=== PATIENT | female | born 1950 | race Caucasian/White ===

== ENCOUNTER → 2017-03-30 | Outpatient (CLI) | payer MEDICARE, BC ==
[~2017-03-30] MED LIST: ACTONEL PO; ALENDRONATE SOD70 MG PO; ATENOLOL PO; ATENOLOL50 MG PO; BACLOFEN10 MG PO; CEPHALEXIN500 M1 PO; COUMADIN1 MG PO; CYMBALTA30 MG PO; EFFEXOR75 MG PO; FERROUS GLUCON324 MG PO; IBUPROFEN PO; LOSARTAN-HCTZ1 EACH PO; MICROZIDE12.5 M1 PO; MOBIC15 MG PO; MORPHINE IR PO; MS CONTIN15 M1 PO; NEURONTIN PO; NORCO 7.5-3251 EACH PO; OMEPRAZOLE40 M1 PO; ORAMORPH SR15 MG PO; PAMELOR PO; PANTOPRAZOLE SO40 MG PO; PHENERGAN25 M1 PO; VALACYCLOVIR500 MG PO; ZOFRAN PO
--- NOTE | ~2017-03-30 | CR139 ---
[facility] A Service of [facility] & [facility] RADIOLOGY TEXT RESULTS PATIENT: NIXON SANDERS LOCATION: [facility] : 49 UNIT #: [id number] AGE: [address]: Lexy Sigala MD SEX: F ORDER DR: [id number] [facility] [address] [place], [place] [address] [id number] O MR#: [id number] Acc #: [id number] NAME: NIXON SANDERS : 1950 SEX: F STUDY DATE/TIME: 03/30/2017 13:42 UNIT: [facility] ROOM: STUDY DESCRIPTION: CR Hand 2 Views Rt Attending Physician: Lexy Sigala M.D. Referring Physician: Lexy Sigala M.D. Ordering Physician: Lexy Sigala M.D. Primary Care Physician: Lexy Sigala M.D. MEDICAL IMAGING REPORT This report is preliminary unless electronic signature is present EXAM Right hand, 3 views. DATE OF EXAM 03/30/2017 HISTORY Pain medial side of right hand and swelling of fifth digit for 1 week. History of rheumatoid arthritis. FINDINGS 3 views of the right hand demonstrate avulsion-type fracture involving the volar base of the third middle phalanx seen only on the lateral view which is indeterminate in age, possibly subacute to chronic. Clinical correlation is recommended. No other fracture or dislocation is seen. The bones are mildly osteopenic. There is a mild degenerative narrowing and osteophytic spurring about the first carpometacarpal joint. There is also narrowing of the third through fifth distal interphalangeal joints and the fifth proximal interphalangeal joint. Subchondral cyst formation is seen involving the head of the fourth proximal phalanx, the base of the fifth proximal phalanx, and at the level of the fifth distal interphalangeal joint. No erosive process is seen. There is soft tissue swelling about the third and fifth phalanges. Calcification in the region of the triangular fibrocartilage is noted. IMPRESSION 1. Avulsion-type fracture involving the volar base of the third middle phalanx which is of indeterminate age possibly subacute to chronic but correlation with patient history and clinical findings is strongly recommended. 2. Degenerative changes as noted above. 3. Soft tissue swelling about the third and fifth phalanges. [facility] A Service of [facility] RADIOLOGY TEXT RESULTS PATIENT: NIXON SANDERS LOCATION: [facility] : [birth year] UNIT #: [id number] AGE: [address]: Lexy Sigala MD SEX: F ORDER DR: Dictated by... Andrade Gusman M.D. THIS IS AN ELECTRONICALLY VERIFIED REPORT Andrade Gusman M.D. at 04/03/2017 9:19 AM FELICITAS/eleonora TD: 03/30/2017 21:41 JOB #: [id number] MEDICAL IMAGING REPORT Page 1 of 1 COPY
== END | disposition home or self-care (01) ==
LOC: CRAD 13:00
DX: M06.9 Rheumatoid arthritis, unspecified (principal); S62.632D Displaced fracture of distal phalanx of right middle finger, subsequent encounter for fracture with routine healing; M79.89 Other specified soft tissue disorders
CPT/HCPCS: 73120

== ENCOUNTER → 2017-05-01 | Outpatient (CLI) | payer MEDICARE, BC ==
--- NOTE | ~2017-05-01 | US77 ---
[facility] A Service of [facility] & [facility] RADIOLOGY TEXT RESULTS PATIENT: NIXON SANDERS LOCATION: [facility] : 49 UNIT #: [id number] AGE: [address]: Lexy Sigala MD SEX: F ORDER DR: [id number] [address] [address] [id number] O MR#: [id number] Acc #: [id number] NAME: NIXON SANDERS : 1950 SEX: F STUDY DATE/TIME: 05/01/2017 11:14 UNIT: [facility] ROOM: STUDY DESCRIPTION: US Kidney Bilateral Complete Attending Physician: Lexy Sigala M.D. Referring Physician: Lexy Sigala M.D. Ordering Physician: Lexy Sigala M.D. Primary Care Physician: Lexy Sigala M.D. MEDICAL IMAGING REPORT This report is preliminary unless electronic signature is present. EXAM Renal ultrasound 05/01/2017. HISTORY Chronic kidney disease stage II. Abnormal renal function tests 1 week ago. FINDINGS The right kidney measured 7.3 cm, while the left kidney measured 7.1 cm in longitudinal dimensions. There is no evidence of hydronephrosis or nephrolithiasis. No cystic or solid mass lesions were seen on either kidney. There is normal renal cortical echogenicity, but the kidneys do appear small bilaterally with some cortical thinning. The bladder was empty for the examination and, therefore, poorly visualized. IMPRESSION 1. Small kidneys bilaterally with cortical thinning. No evidence of hydronephrosis. Normal renal cortical echogenicity. 2. The bladder was empty for the exam and, therefore, poorly visualized. Dictated by... Andrade Gusman M.D. THIS IS AN ELECTRONICALLY VERIFIED REPORT Andrade Gusman M.D. at 05/02/2017 8:29 AM Angelo TD: 05/01/2017 16:54 JOB #: [id number] MEDICAL IMAGING REPORT Page 1 of 1
== END | disposition home or self-care (01) ==
LOC: SGUS 11:08
DX: N18.2 Chronic kidney disease, stage 2 (mild) (principal); N28.89 Other specified disorders of kidney and ureter
CPT/HCPCS: 76775

== ENCOUNTER → 2017-05-08 | Outpatient (CLI) | payer MEDICARE, BC ==
--- NOTE | ~2017-05-08 | US24 ---
[facility] A Service [facility] RADIOLOGY TEXT RESULTS PATIENT: NIXON SANDERS LOCATION: [facility] : 49 UNIT #: [id number] AGE: [address]: Lexy Sigala MD SEX: F ORDER DR: [id number] [facility] [address] [place], [place] [address] [id number] O MR#: [id number] Acc #: [id number] NAME: NIXON SANDERS : 1950 SEX: F STUDY DATE/TIME: 05/08/2017 13:29 UNIT: [facility] ROOM: STUDY DESCRIPTION: US Breast Unilateral Attending Physician: Lexy Sigala M.D. Ordering Physician: Lexy Sigala M.D. Primary Care Physician: Lexy Sigala M.D. MEDICAL IMAGING REPORT This report is preliminary unless electronic signature is present EXAM Right breast ultrasound. INDICATIONS 6-month follow up for a indeterminate right breast mass. Suspected complex cyst. FINDINGS Ford-scale color ultrasound of the right breast was performed and compared to 11/03/2016. The hypoechoic nodule at the 2 o'clock position right breast is approximately 5 cm from nipple. This measures 0.6 x 0.6 x 0.7 cm. The lesion has some low internal echoes. There is some sound through transmission. This may still represent a complex cyst, however, ultrasound-guided core biopsy is recommended. There is no internal Doppler flow identified. No new lesions are identified. The lesion previously measured 0.4 x 0.2 x 0.3 cm. IMPRESSION 1. Small mass at the 2 o'clock position right breast has slightly increased in size since the 11/03/2016 exam. This may still represent a hemorrhagic or proteinaceous cyst, however, would recommend ultrasound-guided aspiration and/or biopsy to further evaluate and differentiate from the solid mass. BIRADS: 4 Suspicious abnormality. Biopsy should be considered. RECOMMENDATION Ultrasound-guided core needle biopsy. [facility] A Service of [facility] RADIOLOGY TEXT RESULTS PATIENT: NIXON SANDERS LOCATION: [facility] : 49 UNIT #: [id number] AGE: [address]: Lexy Sigala MD SEX: F ORDER DR: Results of study as well as recommendations were discussed directly with the patient at the time of review in the department of radiology. The breast transitional care liaison office was contacted to help facilitate the ultrasound guided biopsy. Dictated by... Baldomero Simpson M.D. THIS IS AN ELECTRONICALLY VERIFIED REPORT Baldomero Simpson M.D. at 05/09/2017 9:08 AM LISA/dennis TD: 05/08/2017 16:48 JOB #: [id number] MEDICAL IMAGING REPORT Page 1 of 1 COPY
== END | disposition home or self-care (01) ==
LOC: CGUS 13:14 → CWCC 13:14 → CGUS 13:30
DX: N60.01 Solitary cyst of right breast (principal); N63 Unspecified lump in breast
CPT/HCPCS: 76641

== ENCOUNTER → 2017-05-15 | Day surgery (SDC) | payer MEDICARE, BC ==
--- NOTE | ~2017-05-15 | US200 ---
[facility] A Service of [facility] RADIOLOGY TEXT RESULTS PATIENT: NIXON SANDERS LOCATION: [facility] : 49 UNIT #: [id number] AGE: [address]: Lexy Sigala MD SEX: F ORDER DR: [id number] [facility] [address] [place], [place] [address] [id number] O MR#: [id number] Acc #: [id number] NAME: NIXON SANDERS : 1950 SEX: F STUDY DATE/TIME: 05/15/2017 14:26 UNIT: [facility] ROOM: STUDY DESCRIPTION: US Breast Guided Bx 1st Lesion Attending Physician: Lexy Sigala M.D. Ordering Physician: Lexy Sigala M.D. Primary Care Physician: Lexy Sigala M.D. MEDICAL IMAGING REPORT This report is preliminary unless electronic signature is present REVISED REPORT See addendum EXAM Ultrasound-guided right breast biopsy, 05/15/2017. INDICATIONS Enlarging hypoechoic lesion at the 2 o'clock position of the right breast. PROCEDURE Informed consent was obtained and time-out was performed. The hypoechoic lesion at 2 o'clock position was localized with ultrasound. The skin was marked, and then prepped and draped using maximal sterile barrier technique. 1% lidocaine without epinephrine used for local anesthesia. Initially, attempts were made at aspirating the lesion with a 20 gauge needle. No fluid could be removed. Then, two 14-gauge core biopsies were obtained through the nodule with an Achieve needle. A marking clip was left within the lesion. It is in the expected location on the post-procedure mammogram. There were no immediate complications. Permanent ultrasound images were recorded. IMPRESSION Successful ultrasound-guided core biopsy of a hypoechoic nodule at the right breast 2 o'clock position. Marking clip left in place within the lesion. Dictated by... Mekhi Diego Jr., M.D. [facility] A Service of [facility] RADIOLOGY TEXT RESULTS PATIENT: NIXON SANDERS LOCATION: [facility] #: [id number] : 48 UNIT #: [id number] AGE: [address]: Lexy Sigala MD SEX: F ORDER DR: Raymond TD: 05/15/2017 21:35 JOB #: [id number] EXAM Ultrasound-guided breast biopsy on 05/15/2017. ADDENDUM Pathology results have been received. 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 Please see the complete pathology report. Surgical and Oncological consultation recommended. STAT * RESULT Dictated by... Mekhi Diego Jr., M.D. THIS IS AN ELECTRONICALLY VERIFIED REPORT Mekhi Diego Jr., M.D. at 05/21/2017 3:47 PM Raymond TD: 05/18/2017 15:25 JOB #: [id number] CC: Corinne/davion Please Delete MEDICAL IMAGING REPORT Page 1 of 1 COPY
== END | disposition home or self-care (01) ==
LOC: CWCC 13:52
DX: C50.211 Malignant neoplasm of upper-inner quadrant of right female breast (principal); Z17.1 Estrogen receptor negative status [ER-]
CPT/HCPCS: 88305; G0204

== ENCOUNTER → 2017-06-19 | Outpatient (CLI) | payer MEDICARE, BC ==
--- NOTE | ~2017-06-19 | EKG ---
PATIENT: NIXON SANDERS UNIT #: [id number] Ventricular Rate: 57 BPM Atrial Rate: 57 BPM P-R Interval: 186 ms QRS Duration: 92 ms Q-T Interval: 438 ms QTC Calculation(Bezet): 426 ms P [place]: 119 degrees Calculated R [place]: -25 degrees Calculated T [place]: 11 degrees Diagnosis Line: Sinus bradycardia Diagnosis Line: Moderate voltage criteria for LVH, may be normal Diagnosis Line: variant Diagnosis Line: Borderline ECG Diagnosis Line: When compared with ECG of 06-JAN-2015 10:16, Diagnosis Line: Nonspecific T wave abnormality now evident in Diagnosis Line: Lateral leads Diagnosis Line: Confirmed by RICARDO JENKINS MD ([id number]) on 06/20/2017 Diagnosis Line: 7:36:18 PM INTERPRETING MD: GREGORY ALVAREZ
[2017-06-19 14:02] LABS: HEMATOCRIT 35.8 % (35.0-45.0); MEAN CELL VOLUME 87.3 FL (83-96); MEAN CORPUSCULAR HEMOGLOBIN 29.1 PG (28-34); MEAN CORPUSCULAR HGB CONC 33.3 g/dL (30-36); MEAN PLATELET VOLUME 7.8 FL (6.5-11.5); RED BLOOD COUNT 4.1 X10e (3.90-5.30); RED CELL DISTRIBUTION WIDTH 13.3 % (11.0-15.5); WHITE BLOOD COUNT 7.5 X10e3 (4.0-10.5)
[2017-06-19 14:23] LABS: BUN/CREATININE RATIO 9.33; CALCIUM SERUM 9.2 mg/dL (8.4-10.2); CREATININE SERUM 1.5 mg/dL (0.6-1.4); GLOM FILT RATE Estimated 35.7 mL/min (>60); POTASSIUM 4.3 mmol/L (3.5-5.1)
== END | disposition home or self-care (01) ==
LOC: CAMB 11:26
PROVIDERS: Surgery
DX: Z01.818 Encounter for other preprocedural examination (principal)
CPT/HCPCS: 36415; 80048; 85027; 93005

== ENCOUNTER → 2017-06-21 | Day surgery (SDC) | payer MEDICARE, BC ==
--- NOTE | ~2017-06-21 | MY13 ---
[facility] A Service of [facility] & [facility] RADIOLOGY TEXT RESULTS PATIENT: NIXON SANDERS LOCATION: [facility] : 49 UNIT #: [id number] AGE: [address]: Christiano Infante MD SEX: F ORDER DR: [id number] [facility] [address] [place], [place] [address] [id number] O MR#: [id number] Acc #: [id number] NAME: NIXON SANDERS : 1950 SEX: F STUDY DATE/TIME: 06/21/2017 11:03 UNIT: [facility] ROOM: STUDY DESCRIPTION: MY Surgical Specimen Attending Physician: Christiano Inafnte M.D. Referring Physician: Christiano Infante M.D. Ordering Physician: Christiano Infante M.D. Primary Care Physician: Lexy Sigala M.D. MEDICAL IMAGING REPORT This report is preliminary unless electronic signature is present EXAM Specimen radiograph 06/21 INDICATIONS Status post lumpectomy for breast cancer today following wire localization. FINDINGS Surgical specimen shows fatty breast tissue in addition to the known breast mass with associated marking clip. The [place] wire is present as well. Findings were called directly to Dr. Infante in the operating room at the time of this dictation. IMPRESSION Specimen radiograph contains the mass, marking clip, and [place] wire. Dictated by... Mekhi Diego Jr., M.D. THIS IS AN ELECTRONICALLY VERIFIED REPORT Mekhi Diego Jr., M.D. at 06/21/2017 4:50 PM RADHA/spencer TD: 06/21/2017 12:51 JOB #: [id number] MEDICAL IMAGING REPORT Page 1 of 1 COPY
--- NOTE | ~2017-06-21 | OR ---
Unit #: [id number] #: [id number] Patient: NIXON SANDERS [id number] [address] [place], [place] [address] [id number] O MR#: [id number] NAME: NIXON SANDERS ROOM: Date of Procedure: 06/21/2017 Admission Date: 06/21/2017 Surgeon: Christiano Infante M.D. : 1950 Attending Physician: Christiano Infante M.D. Referring Physician: Christiano Infante M.D. Primary Care Physician: Lexy Sigala M.D. OPERATIVE REPORT PREOPERATIVE DIAGNOSIS Carcinoma, right breast medial aspect. POSTOPERATIVE DIAGNOSIS Carcinoma, right breast medial aspect. PROCEDURE PERFORMED Ultrasound-guided needle localization lumpectomy right breast medial aspect with right axillary sentinel lymph node biopsy. ANESTHESIA General LMA anesthesia with 0.5% Marcaine plain local anesthesia. FINDINGS The patient's sentinel node x2 were benign. The lesion, clip, and wire were all present within the specimen on specimen radiograph. SPECIMENS Sent to pathology. COMPLICATIONS None apparent. CONDITION The patient tolerated the procedure well. INDICATIONS FOR PROCEDURE The patient is a 66-year-old white female, who was recently found to have an abnormality in the right breast on mammography. She underwent additional diagnostic studies and ultrasound which revealed a 6 to 7 mm solid lesion. Ultrasound-guided core biopsy returned infiltrating ductal carcinoma. She was going to have a breast MRI, but was unable to tolerate this. She presents at this time for needle localization lumpectomy and right axillary sentinel lymph node biopsy. DESCRIPTION OF PROCEDURE After obtaining informed consent as well as receiving preoperative antibiotics and knee-high SCDs, the patient who earlier in the day underwent ultrasound guided needle localization of the lesion in question and injection beneath the right nipple areolar complex with radioactive sulfur colloid. She was brought to the operating room and after adequate general LMA anesthesia was obtained, had sterile injection of Lymphazurin Unit #: [id number] #: [id number] Patient: NIXON SANDERS blue beneath the right nipple areolar complex and had massaged for 5 minutes by the clock. At this point in time, the right breast, chest, and abdomen were prepped and draped in a sterile fashion. A curvilinear incision was made in the area of maximal uptake in the right axilla. It was taken down through the skin with a knife and through the subdermal and subcutaneous tissues with electrocautery into the area of the axillary contents. Using the Neoprobe as a guide, two blue lymph nodes were found, dissected free from the surrounding structures with electrocautery as well as with micro-clips and had had the lymph node sent to pathology. After they were removed, there was essentially no radioactive uptake in the right axilla. At this point in time, awaiting for the pathologist to look at the specimens. An incision was made in the medial aspect of the right breast. It was taken down through the skin with a knife and through the subdermal tissues and subcutaneous tissues with electrocautery. The wire was found below the level of the skin and the area around the hook of the wire was grasped with an Allis clamp. It was excised circumferentially with good hemostasis and it was sent to mammography, where on specimen radiograph, the lesion, clip, and wire were all found within the specimen on specimen radiograph. At this point in time, the pathologist called into the room and informed us that both lymph nodes were benign. Both wounds were irrigated. Hemostasis was obtained with the Bovie, infiltrated with 0.5% Marcaine plain local anesthesia. The deep tissues and subdermal tissues were reapproximated with interrupted 3-0 Vicryl suture and the skin was closed in each location with 4-0 Vicryl subcuticular stitches. Benzoin and Steri-Strips were applied over the wound in an occlusive manner. Needle counts, sponge counts, and instrument counts were all correct as reported by the scrub nurse x2. The patient went from the operating room to the recovery room in stable condition. Dictated by... Rakel Broussard/roni TD: 06/21/2017 16:59 JOB #: [id number] CC: [facility] OPERATIVE REPORT Page 1 of 1 X Christiano Infante MD X PROCEDURE OPERATIVE NOTE
--- NOTE | ~2017-06-21 | US202 ---
[facility] A Service of [facility] & [facility] RADIOLOGY TEXT RESULTS PATIENT: NIXON SANDERS LOCATION: [facility] : 49 UNIT #: [id number] AGE: [address]: Christiano Infante MD SEX: F ORDER DR: [id number] [facility] [address] [place], [place] [address] [id number] O MR#: [id number] Acc #: [id number] NAME: NIXON SANDERS : 1950 SEX: F STUDY DATE/TIME: 06/21/2017 8:22 UNIT: [facility] ROOM: STUDY DESCRIPTION: US Breast Guided Ndl Loc 1st Attending Physician: Christiano Infante M.D. Referring Physician: Christiano Infante M.D. Ordering Physician: Chrisitano Infante M.D. Primary Care Physician: Lexy Sigala M.D. MEDICAL IMAGING REPORT This report is preliminary unless electronic signature is present EXAM Ultrasound-guided breast needle localization, 06/21. INDICATION Biopsy-proven breast cancer. Needle localization for surgical excision. PROCEDURE Informed consent was obtained and time-out was performed. The hypoechoic nodule at 2 o'clock was localized with ultrasound. Skin was marked and then prepped and draped using maximum sterile-barrier technique. 1% lidocaine without epinephrine used for local anesthesia. Under direct ultrasound visualization, the hook of a [place] wire was placed through the mass. Placement is confirmed on postprocedure mammogram. The needle was left in place as per Dr. Ifnante's instructions. No immediate complications. Permanent ultrasound images were recorded. IMPRESSION Successful ultrasound-guided needle localization of a right breast cancer. The hook of a [place] wire passes through the nodule. The needle was left in place. Dictated by... Mekhi Diego Jr., M.D. THIS IS AN ELECTRONICALLY VERIFIED REPORT Mekhi Diego Jr., M.D. at 06/21/2017 4:49 PM RADHA/abdifatah TD: 06/21/2017 10:28 JOB #: [id number] [facility] A Service of [facility] & [facility] RADIOLOGY TEXT RESULTS PATIENT: NIXON SANDERS [facility] [id number] : [birth year] UNIT #: [id number] AGE: [address]: Christiano Infante MD SEX: F ORDER DR: MEDICAL IMAGING REPORT Page 1 of 1 COPY
--- NOTE | ~2017-06-21 | NM79 ---
[facility] A Service of [facility] & [facility] RADIOLOGY TEXT RESULTS PATIENT: NIXON SANDERS LOCATION: [facility] : 49 UNIT #: [id number] AGE: [address]: Christiano Infante MD SEX: F ORDER DR: [id number] [facility] [address] [place], [place] [address] [id number] O MR#: [id number] Acc #: [id number] NAME: NIXON SANDERS : 1950 SEX: F STUDY DATE/TIME: 06/21/2017 9:19 UNIT: [facility] ROOM: STUDY DESCRIPTION: NM [place] Node Inj Attending Physician: Christiano Infante M.D. Referring Physician: Christiano Infante M.D. Ordering Physician: Christiano Infante M.D. Primary Care Physician: Lexy Sigala M.D. MEDICAL IMAGING REPORT This report is preliminary unless electronic signature is present EXAM [place] node injection, 06/21 INDICATION Y[place]olt node mapping at time of lumpectomy for breast cancer today. FINDINGS The patient's identity was confirmed. The right periareolar breast was wiped with an alcohol prep pad. Then, four intradermal periareolar injections were made at the 12 o'clock, 3 o'clock, 6 o'clock and 9 o'clock positions. A total of 5800 mcCi of technetium-99m filtered sulfur colloid were injected at 9 a.m.. No complication. IMPRESSION Right periareolar injection of 580 mcCi of technetium 99m labeled filtered sulfur colloid for sentinel node mapping. Dictated by... Mekhi Diego Jr., M.D. THIS IS AN ELECTRONICALLY VERIFIED REPORT Mekhi Diego Jr., M.D. at 06/21/2017 4:49 PM Richard TD: 06/21/2017 12:17 JOB #: [id number] MEDICAL IMAGING REPORT Page 1 of 1 COPY
== END | disposition home or self-care (01) ==
LOC: CWCC 07:22 → CSUR 10:30
DX: C50.911 Malignant neoplasm of unspecified site of right female breast (principal); I12.9 Hypertensive chronic kidney disease with stage 1 through stage 4 chronic kidney disease, or unspecified chronic kidney disease; N18.2 Chronic kidney disease, stage 2 (mild); K21.9 Gastro-esophageal reflux disease without esophagitis; J44.9 Chronic obstructive pulmonary disease, unspecified; G89.29 Other chronic pain; M54.9 Dorsalgia, unspecified; M06.9 Rheumatoid arthritis, unspecified; M81.0 Age-related osteoporosis without current pathological fracture; M19.90 Unspecified osteoarthritis, unspecified site; F41.8 Other specified anxiety disorders; Z87.891 Personal history of nicotine dependence; Z88.8 Allergy status to other drugs, medicaments and biological substances; Z91.013 Allergy to seafood; Z79.899 Other long term (current) drug therapy; Z98.51 Tubal ligation status
CPT/HCPCS: 76098; 88305; 88307; 88331; 88332; 88360; A9541; G0204; J0690; J1170; J3010

== ENCOUNTER → 2017-07-17 | Outpatient (CLI) | payer MEDICARE, BC ==
[~2017-07-17] VITALS: Ht 160 cm; Wt 73.5 kg
--- NOTE | ~2017-07-17 | XA91 ---
[facility] A Service of [facility] RADIOLOGY TEXT RESULTS PATIENT: NIXON SANDERS LOCATION: [facility] : [birth year] UNIT #: [id number] AGE: [address]: Kraig Coats MD SEX: F ORDER DR: [id number] [facility] [address] [place], [place] [address] [id number] O MR#: [id number] Acc #: [id number] NAME: NIXON SANDERS. : 1950 SEX: F STUDY DATE/TIME: 07/17/2017 8:14 UNIT: [facility] ROOM: STUDY DESCRIPTION: XA CVC Tunneled W Port Attending Physician: Kraig Coats M.D. Referring Physician: Kraig Coats M.D. Ordering Physician: Kraig Coats M.D. Primary Care Physician: Lexy Sigala M.D. MEDICAL IMAGING REPORT This report is preliminary unless electronic signature is present EXAM Nrbgkf-T-Gnha catheter insertion 07/17/2017 HISTORY IV access required for chemotherapy. PROCEDURE Informed consent was obtained. Fentanyl and Versed were administered for IV conscious sedation with hemodynamic monitoring provided by the nursing staff throughout THE procedure, sedation time 45 minutes. FINDINGS Full standard sterile technique was utilized including sterile preparation barrier draping, sterile gowns and gloves as well as caps and mass. Real-time sterile ultrasound guidance was used both to guide venous access and confirm vessel patency. After local anesthesia the left internal jugular vein was accessed via standard Seldinger technique, a peel-away sheath inserted, after track dilatation. After local anesthesia a combination of blunt and sharp dissection were used to create a pocket over the left upper chest wall. Grlhyr-M-Prwp catheter hub was inserted in the pocket and then a tunneling device was used to extend the catheter to the venotomy site. It was then measured, cut to length inserted via the peel-away sheath. The Mumzqy-I-Qckg was accessed, blood return confirmed, and catheter was flushed and then packed with heparin solution. The venotomy site was closed with 3-0 Vicryl deep fascial suture and N-Butyl Cyanoacrylate glue and the hub pocket was closed with a deep interrupted 3-0 Vicryl suture and running subcuticular 4-0 Monocryl suture and N-Butyl Cyanoacrylate glue. There were no complications and the [facility] A Service of [facility] & [facility] RADIOLOGY TEXT RESULTS PATIENT: NIXON SANDERS LOCATION: [facility] : 49 UNIT #: [id number] AGE: [address]: Kraig Coats MD SEX: F ORDER DR: patient tolerated procedure well. IMPRESSION 1. Successful ultrasound and fluoroscopically guided insertion of a left IJ Yuhedj-K-Jfop catheter tip in the lower SVC ready for immediate use. 2. Total fluoro time 4.4 minutes, single fluoroscopic spot image obtained. Dictated by... Naseem Juárez M.D. THIS IS AN ELECTRONICALLY VERIFIED REPORT Naseem Juárez M.D. at 07/20/2017 4:08 PM DILCIA/spencer TD: 07/17/2017 18:27 JOB #: [id number] MEDICAL IMAGING REPORT Page 1 of 1 COPY
[2017-07-17 07:20] LABS: HEMATOCRIT 37.5 % (35.0-45.0); HEMOGLOBIN 12.6 gm/dL (12.0-16.0); MEAN CELL VOLUME 86.5 FL (83-96); MEAN CORPUSCULAR HEMOGLOBIN 29.1 PG (28-34); MEAN CORPUSCULAR HGB CONC 33.6 g/dL (30-36); MEAN PLATELET VOLUME 7.7 FL (6.5-11.5); RED BLOOD COUNT 4.34 X10e (3.90-5.30); WHITE BLOOD COUNT 7.3 X10e3 (4.0-10.5)
[2017-07-17 07:32] LABS: INR 1.1; PARTIAL THROMBOPLASTIN TIME 26.2 SECONDS (23.5-31.3); PROTHROMBIN TIME (PATIENT) 11.4 SECONDS (10.0-11.7)
== END | disposition home or self-care (01) ==
LOC: CIVR 06:40
PROVIDERS: Internal Medicine Hematology & Oncology
DX: C50.211 Malignant neoplasm of upper-inner quadrant of right female breast (principal)
CPT/HCPCS: 36415; 76937; 77001; 85027; 85610; 85730; 99152; 99153; C1788; J0690; J1642; J2250; J3010